=== PATIENT | female | born 1995 | race Caucasian/White ===

== ENCOUNTER 2016-12-17 15:53 | Emergency (ER) | payer OTHER ==
[~2016-12-17] VITALS: Ht 165.1 cm; Wt 97.0 kg
[2016-12-17 15:57] VITALS: BP 137/85
[2016-12-17] MEDS ORDERED: FIORICET 50-301 EACH PO (17:09)
[2016-12-17] MEDS ORDERED: MOTRIN800 MG PO (17:09)
[2016-12-17] MEDS ORDERED: VALIUM5 MG PO (17:09)
== END 2016-12-17 18:04 | disposition home or self-care (01) ==
LOC: EME 15:53
DX: S16.1XXA Strain of muscle, fascia and tendon at neck level, initial encounter (principal); S06.0X9A Concussion with loss of consciousness of unspecified duration, initial encounter; S29.012A Strain of muscle and tendon of back wall of thorax, initial encounter; V49.40XA Driver injured in collision with unspecified motor vehicles in traffic accident, initial encounter; Z91.040 Latex allergy status; Z88.6 Allergy status to analgesic agent
CPT/HCPCS: 72040; 99281; 99284